=== PATIENT | female | born 1985 | race Caucasian/White ===

== ENCOUNTER → 2017-06-19 | Outpatient (CLI) | payer OTHER ==
[~2017-06-19] MED LIST: MESA1.2T PO
[2017-06-19 14:00] LABS: ASPARTATE AMINO TRANSFERASE 11 U/L (15-37); BLOOD UREA NITROGEN 18 mg/dL (7-18)
== END | disposition home or self-care (01) ==
LOC: STAR 12:27
PROVIDERS: ATTEND Surgery
DX: Z01.812 Encounter for preprocedural laboratory examination (principal); R79.1 Abnormal coagulation profile
CPT/HCPCS: 36415; 80053; 84703; 85025; 85610

== ENCOUNTER 2017-07-03 11:25 | Inpatient (IN) | payer OTHER ==
[~2017-07-03] VITALS: Ht 162.6 cm; Wt 68.7 kg
[2017-07-03 11:50] VITALS: BP 125/88
[2017-07-03] MEDS ORDERED: LACTATED RINGERS 1,000 ML IV SCH ×2 (12:11→19:00)
[2017-07-03 12:19] LABS: HCG UR OBC PASS
[2017-07-03] MEDS ORDERED: MIDAZOLAM 1 MG/ML, 2ML ONE (12:57)
[2017-07-03] MEDS ORDERED: FENTANYL PF 250 MCG/5ML ONE ×2 (12:57→16:06)
[2017-07-03] MEDS ORDERED: BUPIVACAINE/PF-EPI 0.5% 1:200K ONE (14:17)
[2017-07-03] MEDS ORDERED: DEXAMETHASONE 4 MG/ML, 1ML ONE (14:23)
[2017-07-03] MEDS ORDERED: ONDANSETRON 2MG/ML, 2ML ONE ×2 (14:23→17:35)
[2017-07-03] MEDS ORDERED: CEFAZOLIN 1,000 MG ONE (14:23)
[2017-07-03] MEDS ORDERED: SUCCINYLCHOLINE 20 MG/ML, 10ML ONE (14:23)
[2017-07-03] MEDS ORDERED: PROPOFOL 10 MG/ML, 20ML ONE (14:23)
[2017-07-03] MEDS ORDERED: ROCURONIUM 10 MG/ML ONE (14:23)
[2017-07-03] MEDS ORDERED: OXYcodone 5 MG/5 ML ORAL.SOL UDC ONE (17:21)
[2017-07-03] MEDS ORDERED: ACETAMINOPHEN 650 MG/20.3 ML UDC ONE (17:21)
[2017-07-03] MEDS ORDERED: FENTANYL PF 100 MCG/2ML ONE (17:21)
[2017-07-03] MEDS ORDERED: HYDROmorphone 1 MG/ML, 1ML ONE ×2 (17:21→17:27)
[2017-07-03] MEDS ORDERED: ACETAMINOPHEN 325 MG/10.15 ML UDC ONE (17:21)
[2017-07-03] MEDS: FENTANYL PF 100 MCG/2ML IV PRN ×2 (17:29→17:48)
[2017-07-03] MEDS ORDERED: LABETALOL 5MG/ML, 20ML IV PRN (17:30)
[2017-07-03] MEDS ORDERED: ACETAMINOPHEN 325 MG TABLET PO PRN (17:30)
[2017-07-03] MEDS ORDERED: HYDROmorphone 1 MG/ML, 1ML IV PRN (17:30)
[2017-07-03] MEDS ORDERED: OXYcodone 5 MG/5 ML ORAL.SOL UDC PO PRN (17:30)
[2017-07-03] MEDS ORDERED: ONDANSETRON 2MG/ML, 2ML IVPush PRN ×2 (17:30→19:00)
[2017-07-03] MEDS ORDERED: hydrALAzine 20 MG/ML, 1ML IV PRN (17:30)
[2017-07-03] MEDS ORDERED: PROMETHAZINE 25 MG/ML, 1ML IV PRN (17:30)
[2017-07-03] MEDS ORDERED: PROMETHAZINE 25 MG/ML, 1ML ONE (18:19)
[2017-07-03] MEDS ORDERED: KETOROLAC 30 MG/1 ML IV PRN (19:00)
[2017-07-03] MEDS ORDERED: MORPHINE SULFATE 4 MG/ML, 1ML IVPush PRN (19:00)
[2017-07-03] MEDS ORDERED: DIPHENHYDRAMINE 25 MG CAPSULE PO PRN (20:30)
[2017-07-03 21:26] VITALS: BP 105/60
[2017-07-03] MEDS: MESALAMINE 1.2 GM TABLET.DR PO SCH (21:32)
[2017-07-03] MEDS: OXYcodone/APAP 5/325MG TABLET PO PRN (21:48)
[2017-07-03] MEDS: CEFAZOLIN PMX 2GM/50ML 50 ML IVPB SCH (23:21)
[2017-07-03 23:33] VITALS: BP 100/61
[2017-07-04 03:35] VITALS: BP 92/44
[2017-07-04] MEDS: OXYcodone/APAP 5/325MG TABLET PO PRN ×2 (04:39→08:49)
[2017-07-04] MEDS: CEFAZOLIN PMX 2GM/50ML 50 ML IVPB SCH (06:33)
[2017-07-04] MEDS: MESALAMINE 1.2 GM TABLET.DR PO SCH (08:49)
[2017-07-04 09:30] VITALS: BP 108/68
[2017-07-04] MEDS ORDERED: OXYC-302 PO (10:20)
[2017-07-04] MEDS ORDERED: CEPH-368 PO (10:21)
[2017-07-04] MEDS ORDERED: PHENERGAN PO (10:22)
== END 2017-07-04 10:40 | disposition home or self-care (01) | DRG 580 ==
LOC: OUT 11:25 → 4NOR 18:36 → OUT 18:47 → 4NOR 18:48
PROVIDERS: ADMIT Internal Medicine; ATTEND Surgery
PROC: 0HTV0ZZ Resection of Bilateral Breast, Open Approach (ICD-10-PCS; 2017-07-03)
PROC: 0HHV0NZ Insertion of Tissue Expander into Bilateral Breast, Open Approach (ICD-10-PCS; principal; 2017-07-03 13:30)
PROC: 07T50ZZ Resection of Right Axillary Lymphatic, Open Approach (ICD-10-PCS; 2017-07-03 13:30)
DX: N63 Unspecified lump in breast (principal); K51.90 Ulcerative colitis, unspecified, without complications; R53.1 Weakness; Z80.41 Family history of malignant neoplasm of ovary; Z80.3 Family history of malignant neoplasm of breast; Z82.61 Family history of arthritis; Z83.3 Family history of diabetes mellitus; Z82.49 Family history of ischemic heart disease and other diseases of the circulatory system; Z83.49 Family history of other endocrine, nutritional and metabolic diseases; Z90.13 Acquired absence of bilateral breasts and nipples
CPT/HCPCS: 81025; 88307; C1729; C1789; J0690; J1100; J1885; J2250; J2405; J2550; J2704; J3010; C1762; J0330; J7120

== ENCOUNTER → 2017-10-17 | Outpatient (CLI) | payer OTHER ==
[~2017-10-17] MED LIST changes: +CEPH-368 PO; +OXYC-302 PO; +PHENERGAN PO
[2017-10-17 15:35] LABS: HEMATOCRIT 38.9 % (34.6-47.8); WHITE BLOOD COUNT 7.7 x10^3/uL (3.4-10)
[2017-10-17 15:40] LABS: PATH.CAST-FLAG NOT PRESENT; SPERM-FLAG NOT PRESENT; SRC-FLAG NOT PRESENT; XTAL-FLAG NOT PRESENT; YLC-FLAG NOT PRESENT
== END ==
LOC: STAR 14:42
DX: Z01.818 Encounter for other preprocedural examination (principal); Z15.01 Genetic susceptibility to malignant neoplasm of breast
CPT/HCPCS: 36415; 81001; 84703; 85025

== ENCOUNTER 2017-10-29 08:31 | Day surgery (SDC) | payer OTHER ==
[~2017-10-29] VITALS: Ht 162.6 cm; Wt 64.4 kg
[2017-10-29] MEDS ORDERED: LACTATED RINGERS 1,000 ML IV SCH ×2 (08:50→21:00)
[2017-10-29 08:51] LABS: HCG UR LOT HCG7030192
[2017-10-29 08:56] LABS: HCG UR OBC PASS
[2017-10-29 09:11] VITALS: BP 114/74
[2017-10-29] MEDS ORDERED: FENTANYL PF 100 MCG/2ML ONE ×5 (09:34→12:42)
[2017-10-29] MEDS ORDERED: MIDAZOLAM 1 MG/ML, 2ML ONE (09:35)
[2017-10-29] MEDS ORDERED: PROPOFOL 10 MG/ML, 20ML ONE (09:37)
[2017-10-29] MEDS ORDERED: ROCURONIUM 10 MG/ML,10ML ONE (09:37)
[2017-10-29] MEDS ORDERED: CEFAZOLIN 1,000 MG ONE ×2 (09:38)
[2017-10-29] MEDS ORDERED: SODIUM CHLORIDE 0.9% PF 10ML ONE (09:38)
[2017-10-29] MEDS ORDERED: GLYCOPYRROLATE 0.4 MG/2 ML, 2ML ONE ×3 (09:40→12:51)
[2017-10-29] MEDS ORDERED: NEOSTIGMINE 1 MG/ML, 10ML ONE (09:40)
[2017-10-29] MEDS ORDERED: ONDANSETRON 2MG/ML, 2ML ONE (09:41)
[2017-10-29] MEDS ORDERED: DEXAMETHASONE 4 MG/ML, 1ML ONE ×2 (09:41)
[2017-10-29] MEDS ORDERED: BUPIVACAINE/PF 0.25% ONE (11:24)
[2017-10-29] MEDS ORDERED: EPINEPHRINE 1 MG/ML, 1ML ONE (11:24)
[2017-10-29] MEDS ORDERED: SCOPOLAMINE PATCH, 1.5MG PATCH.TD72 TD ONE ×2 (11:34→11:45)
[2017-10-29] MEDS ORDERED: PROMETHAZINE 25 MG/ML, 1ML IV PRN (12:00)
[2017-10-29] MEDS ORDERED: HYDROmorphone 1 MG/ML, 1ML IV PRN (12:00)
[2017-10-29] MEDS ORDERED: ACETAMINOPHEN 325 MG TABLET PO PRN (12:00)
[2017-10-29] MEDS ORDERED: hydrALAzine 20 MG/ML, 1ML IV PRN (12:00)
[2017-10-29] MEDS ORDERED: ONDANSETRON 2MG/ML, 2ML IVPush PRN (12:00)
[2017-10-29] MEDS ORDERED: LABETALOL 5MG/ML, 20ML IV PRN (12:00)
[2017-10-29] MEDS ORDERED: FENTANYL PF 100 MCG/2ML IV PRN (12:00)
[2017-10-29] MEDS ORDERED: OXYcodone 5 MG/5 ML ORAL.SOL UDC PO PRN (12:00)
[2017-10-29] MEDS ORDERED: MEPERIDINE/PF 25MG/0.5ML IVPush PRN (12:00)
[2017-10-29] MEDS ORDERED: BUPIVACAINE/PF-EPI 0.25% 1:200K IM ONE (12:22)
[2017-10-29] MEDS ORDERED: FLUORESCEIN SODIUM 500 MG/5 ML ONE (13:49)
[2017-10-29] MEDS ORDERED: KETOROLAC 30 MG/1 ML ONE (13:53)
[2017-10-29] MEDS: OXYcodone/APAP 5/325MG TABLET PO PRN ×2 (16:35→20:52)
[2017-10-29] MEDS ORDERED: OXYcodone/APAP 5/325MG TABLET ONE (16:36)
[2017-10-29 19:34] VITALS: BP 116/71
[2017-10-29 21:09] VITALS: BP 113/69
[2017-10-29] MEDS ORDERED: ONDANSETRON 2MG/ML, 2ML IV PRN (21:30)
[2017-10-29] MEDS ORDERED: OXYcodone/APAP 5/325MG TABLET PO PRN (21:30)
[2017-10-29] MEDS ORDERED: KETOROLAC 30 MG/1 ML IV PRN (21:30)
== END 2017-10-29 21:48 | disposition home or self-care (01) ==
LOC: OUT 08:31 → 4NOR 19:28 → OUT 21:48
DX: C56.2 Malignant neoplasm of left ovary (principal); C56.1 Malignant neoplasm of right ovary; N80.1 Endometriosis of ovary; Z15.01 Genetic susceptibility to malignant neoplasm of breast; Z15.02 Genetic susceptibility to malignant neoplasm of ovary
CPT/HCPCS: 52000; 58571; 81025; 88307; C1760; J0171; J0690; J1100; J1885; J2250; J2405; J2704; J2710; J3010; J3490; J7120